=== PATIENT | female | born 1970 | race Hispanic/Latino ===

== ENCOUNTER 2018-01-05 12:23 | Outpatient (CLI) | payer OTHER ==
--- NOTE | 2018-01-05 13:39 | Cat Scan Report ---
FINAL REPORT EXAM: CT HEAD/BRAIN WO CON HISTORY: NEW ONSET HEADACHE, SHARP HEADACHE WITH TINNITUS TECHNIQUE: CT of the head was performed without intravenous contrast. PRIORS: None. FINDINGS: The ventricles are normal in shape and position. The ventricles are nondilated. No intracranial hemorrhage, mass, mass effect, midline shift or evidence of acute ischemic infarct. The basilar cisterns are patent. The paranasal sinuses are clear. A nonspecific subcutaneous lesion is seen in the left occipital region. The calvarium is intact. The orbits are intact. The mastoid air cells are clear. IMPRESSION: No acute intracranial abnormality.
== END 2018-01-05 12:24 | disposition home or self-care (01) ==
LOC: CT 12:23
PROVIDERS: ATTEND Internal Medicine
DX: R51 Headache (principal)
CPT/HCPCS: 70450